=== PATIENT | female | born 1965 | race Caucasian/White ===

== ENCOUNTER 2022-06-28 09:30 | Inpatient (IN) ==
--- NOTE | 2022-06-28 09:51 | Emergency Department Note ---
Impression & Plan Overdose, Depression with suicidal ideation ED Provider Note NAME: CARLO GOLD AGE: 56 SEX: F : 1965 ARRIVES VIA: Walk-In INFORMANT: Patient, ED PROVIDER(S): Jose Carrera MD Chief Complaint: Overdose, outpatient referral HPI: Patient does present after disclosing an overdose that occurred on Sunday with one of her mental health providers. Patient states that she took approximately 2550 mg trazodone Sunday alcohol was involved and the patient took a small amount of 500 mg Tylenol. Patient believes that she only took a few Tylenol. Patient states that she vomited most of the day on Sunday but does feel improved. The patient did take the overdose with the intent to kill her self. Patient states that she did have a prior history of self-harm approximate 14 years prior. 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 The patient does occasionally use alcohol but denies any drugs or tobacco. Patient states that her sleep is not been restful and poor. The patient's appetite has been poor. Patient denies any HI or AVH. The patient recently had been switched up to where she had started taking Latuda about a week prior. Patient had presented for follow-up today and was referred here for further evaluation and treatment. Patient does feel safe at home. The patient has no access to guns or weapons per patient. ROS: See HPI for pertinent positives and negatives. A total of 10 systems were reviewed and otherwise negative. Past medical history: See below Surgical history: See below Social history: See below Physical Exam: GENERAL: NAD, wearing a mask, non-toxic. EYE EXAM: Normal conjunctiva. PERRL, no anisocoria and EOM's grossly intact w/o pain. NECK: Supple, no nuchal rigidity, no adenopathy, non-tender. No signs of meningismus. FROM of the neck with good chin to chest and neck extension. No stridor. LUNGS: Clear to auscultation. Normal chest wall mechanics. HEART: NSR, no MRG. ABDOMEN: Abdomen soft, non-tender, normo-active bowel sounds, no masses, no rebound or guarding. BACK: No CVA TTP. SKIN: No rashes and no bruising. UPPER EXTREMITIES: Upper extremities are grossly normal. LOWER EXTREMITIES: Grossly normal, no edema. NEURO EXAM: A&O x3, cranial nerves II-XII grossly intact, normal speech, moves all 4 extremities. Psych: Positive SI, depressed mood, negative HI or AVH. Differential diagnoses: Mood disorder, infection, hypoglycemia, electrolyte abnormalities, cardiac sources, intracerebral event, toxicologic, trauma, n eurologic, as well as other pathologies. Course: Patient was seen and evaluated the bedside. Full history physical exam was performed. EKG interpreted by me Normal sinus rhythm, to 64, normal intervals normal axis no ST elevations. No significant change for comparison EKG completed October 23, 2009 MDM: Patient was seen due to concern for mental wellness. The patient only took a small amount of Tylenol and the patient's trazodone would likely have metabolized by now as the half-life is 10 hours. Blood work is obtained. Patient was medically cleared seen and evaluated by psych major case detective and referrals were made. Patient was excepted to inpatient psych. 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 Beliefs That Will Affect Care: None Feels Safe at Home: Yes Assistive Devices: None Allergies Allergies Allergy/AdvReac Type Severity Reaction Status Date / Time cat dander Allergy Mild Watery Eye Verified 06/28/22 10:17 Home Meds Home Medications Medication Instructions Recorded Confirmed trazodone 50 mg tablet 50 mg PO HS ##0 05/10/10 06/28/22 bupropion HCl 150 mg tablet,12 hr 150 mg PO DAILY 06/28/22 06/28/22 sustained-release (Wellbutrin SR) cetirizine 10 mg capsule (All Day 10 mg PO DAILY 06/28/22 06/28/22 Allergy (cetirizine)) clonazepam 0.5 mg tablet (Klonopin) 0.5 mg PO BID PRN Anxiety 06/28/22 06/28/22 cyclobenzaprine 5 mg tablet 5 mg DAILY 06/28/22 06/28/22 ibuprofen 600 mg tablet (IBU) 600 mg PO BID 06/28/22 06/28/22 lurasidone 20 mg tablet (Latuda) 20 mg PO DAILY 06/28/22 06/28/22 pantoprazole 40 mg tablet,delayed 40 mg PO DAILY 06/28/22 06/28/22 release Results & Data (ED) Vital Signs Vital Signs - 24 hr 06/28/22 09:41 06/28/22 10:11 06/28/22 11:31 Temperature 37 C Temperature Source Oral Pulse Rate 86 Pulse Rate [Apical] 71 Pulse Rhythm [Apical] Regular Pulse Strength [Apical] Normal Respiratory Rate 18 16 16 Respiratory Effort / Characteristics Non-Labored Respiratory Depth Normal Respiratory Pattern Regular Blood Pressure 163/102 H Blood Pressure [Left Arm] 146/96 H Blood Pressure Mean 122 Blood Pressure Mean [Left Arm] 112 Blood Pressure Position [Left Arm] Sitting Pulse Oximetry 98 96 Oxygen Delivery Method Room Air Room Air Sepsis Recent Fever Within 48 Hours No Sepsis New/Unexplained Change in Mental Status No Sepsis Action Taken by Nursing No Action Required Home Medications Current Medication List: was personally reviewed by me Laboratory Data Attestation: I reviewed the patient's lab results. Result diagrams: 06/28/22 10:20 06/28/22 10:20 Lab Results 06/28/22 06/28/22 06/28/22 Range/Units 10:20 10:20 10:20 WBC 3.75 L (4.8-10.8) K/ul RBC 4.14 (3.93-5.22) M/uL Hgb 13.3 (12.0-16.0) g/dl Hct 39.8 (34.1-44.9) % MCV 96.1 (80.0-100.0) fL MCH 32.1 (25.0-34.0) pg MCHC 33.4 (32.0-36.0) g/dL RDW Std Deviation 43.5 (36.4-46.3) fL RDW Coeff of Kathrine 12.2 (11.5-14.5) % Plt Count 175 (130-400) K/uL MPV 10.8 (9.4-12.3) fL Immature Gran % (Auto) 0.3 % Neut % (Auto) 57.8 % Lymph % (Auto) 33.3 % [place] % (Auto) 5.9 % Eos % (Auto) 1.9 % Baso % (Auto) 0.8 % Neut # (Auto) 2.17 (1.4-6.5) K/uL Lymph # (Auto) 1.25 (1.2-3.4) K/uL [place] # (Auto) 0.22 L (0.24-0.82) K/uL Eos # (Auto) 0.07 (0-0.50) K/uL Baso # (Auto) 0.03 (0-0.2) K/uL Immature Gran # (Auto) 0.01 (0.00-0.02) K/uL Sodium 140 (136-145) mmol/L Potassium 3.9 (3.5-5.1) mmol/L Chloride 106 (98-107) mmol/L Carbon Dioxide 29 (21-32) mmol/L Anion Gap 5 (3-11) BUN 15 (6-23) mg/dl Creatinine 0.85 (0.6-1.2) mg/dl Est Cr Clr Drug Dosing 76.8 ml/min Est GFR ( Amer) 88.2 ml/min Est GFR (Non-Af Amer) 76.1 ml/min BUN/Creatinine Ratio 17.6 (10-20) Glucose 94 (70-99(Fasting)) mg/dl Calcium 9.1 (8.5-10.1) mg/dl Total Bilirubin 0.7 (0.2-1.0) mg/dl AST 17 (13-39) U/L ALT 15 (7-52) U/L Alkaline Phosphatase 34 (34-104) U/L Total Protein 6.5 (6.0-8.3) gm/dl Albumin 4.3 (3.4-5.0) gm/dl Globulin 2.2 L (2.5-4.0) gm/dl Albumin/Globulin Ratio 2.0 (0.9-2) TSH 1.693 (0.300-4.500) uIu/ml Salicylates (3.0-30) mg/dl Acetaminophen (10-30) ug/ml Ethyl Alcohol mg/dL (<10.0) mg/dl 06/28/22 06/28/22 Range/Units 10:20 10:20 WBC (4.8-10.8) K/ul RBC (3.93-5.22) M/uL Hgb (12.0-16.0) g/dl Hct (34.1-44.9) % MCV (80.0-100.0) fL MCH (25.0-34.0) pg MCHC (32.0-36.0) g/dL RDW Std Deviation (36.4-46.3) fL RDW Coeff of Kathrine (11.5-14.5) % Plt Count (130-400) K/uL MPV (9.4-12.3) fL Immature Gran % (Auto) % Neut % (Auto) % Lymph % (Auto) % [place] % (Auto) % Eos % (Auto) % Baso % (Auto) % Neut # (Auto) (1.4-6.5) K/uL Lymph # (Auto) (1.2-3.4) K/uL [place] # (Auto) (0.24-0.82) K/uL Eos # (Auto) (0-0.50) K/uL Baso # (Auto) (0-0.2) K/uL Immature Gran # (Auto) (0.00-0.02) K/uL Sodium (136-145) mmol/L Potassium (3.5-5.1) mmol/L Chloride (98-107) mmol/L Carbon Dioxide (21-32) mmol/L Anion Gap (3-11) BUN (6-23) mg/dl Creatinine (0.6-1.2) mg/dl Est Cr Clr Drug Dosing ml/min Est GFR ( Amer) ml/min Est GFR (Non-Af Amer) ml/min BUN/Creatinine Ratio (10-20) Glucose (70-99(Fasting)) mg/dl Calcium (8.5-10.1) mg/dl Total Bilirubin (0.2-1.0) mg/dl AST (13-39) U/L ALT (7-52) U/L Alkaline Phosphatase (34-104) U/L Total Protein (6.0-8.3) gm/dl Albumin (3.4-5.0) gm/dl Globulin (2.5-4.0) gm/dl Albumin/Globulin Ratio (0.9-2) TSH (0.300-4.500) uIu/ml Salicylates < 3.0 L (3.0-30) mg/dl Acetaminophen < 3 L (10-30) ug/ml Ethyl Alcohol mg/dL < 10.0 (<10.0) mg/dl Administered Medications Discontinued Medications Sumatriptan Succinate (Sumatriptan Succinate 25 Mg Tab) 25 mg PO ONE STA Stop: 06/28/22 14:40 Last Admin: 06/28/22 15:19 Dose: 25 mg Documented By: LEYDA Discharge Plan Visit Data Chief Complaint: Mental Health Evaluation Stated Complaint: MENTAL HEALTH EVALUATION ED Provider: Jose Carrera Discharge Problem: Overdose, Depression with suicidal ideation Patient Disposition: Admitted As Inpatient Discharge Instructions Interventions: ED Discharge Assessment Last Done: 06/28/22 13:47
[2022-06-28 10:16] LABS: Appearance Urine Clear (Clear); Bacteria Urine Automated Negative (Negative); Bilirubin Urine Negative (Negative); Blood Urine Negative (Negative); Color Urine Yellow; Epithelial Cell Urine Auto >30 /lpf (0-5); Glucose Urine UA Negative (Negative); Ketones Urine Negative (Negative); Leukocyte Esterase Urine 1+ (Negative); Nitrite Urine Negative (Negative); Protein Urine Negative (Negative); RBC Urine Automated 0-4 /hpf (0-4); Specific Gravity Urine 1.019 (1.000-1.030); Urobilinogen Urine Negative (Negative)
[2022-06-28 10:43] LABS: Basophils # (auto) 0.03 K/uL (0-0.2); Basophils % (auto) 0.8 %; Eosinophils # (auto) 0.07 K/uL (0-0.50); Eosinophils % (auto) 1.9 %; Hematocrit (blood only) 39.8 % (34.1-44.9); Hemoglobin 13.3 g/dl (12.0-16.0); Immature Granulocytes # (auto) 0.01 K/uL (0.00-0.02); Immature Granulocytes % (auto) 0.3 %; Lymphocytes # (auto) 1.25 K/uL (1.2-3.4); Lymphocytes % (auto) 33.3 %; Mean Corpuscular Hemoglobin 32.1 pg (25.0-34.0); Mean Corpuscular Hgb Conc 33.4 g/dL (32.0-36.0); Mean Corpuscular Volume 96.1 fL (80.0-100.0); Mean Platelet Volume 10.8 fL (9.4-12.3); Monocytes # (auto) 0.22 K/uL (0.24-0.82); Monocytes % (auto) 5.9 %; Neutrophils # (auto) 2.17 K/uL (1.4-6.5); Neutrophils % (auto) 57.8 %; Platelet Count 175 K/uL (130-400); RDW Coefficient of Variation 12.2 % (11.5-14.5); RDW Standard Deviation 43.5 fL (36.4-46.3); Red Blood Count 4.14 M/uL (3.93-5.22); White Blood Count 3.75 K/ul (4.8-10.8)
[2022-06-28 10:58] LABS: Amphetamines+Metham, Urine Neg (Neg); Barbiturates, Urine Neg (Neg); Benzodiazepine, Urine Neg (Neg); Cocaine, Urine Neg (Neg); MDMA (Ecstacy), Urine Pos (Neg); Methadone, Urine Neg (Neg); Opiate, Urine Neg (Neg); Phencyclidine, Urine Neg (Neg)
[2022-06-28 11:03] LABS: Albumin Level 4.3 gm/dl (3.4-5.0); BUN Creatinine Ratio 17.6 (10-20); Bilirubin,Total 0.7 mg/dl (0.2-1.0); Calcium 9.1 mg/dl (8.5-10.1); Creatinine Clr Calc Pharmacy 76.8 ml/min; Est GFR (African American) 88.2 ml/min; Est GFR (Non-African American) 76.1 ml/min; Globulin 2.2 gm/dl (2.5-4.0); Potassium 3.9 mmol/L (3.5-5.1); Total Protein 6.5 gm/dl (6.0-8.3)
[2022-06-28 11:04] LABS: Acetaminophen < 3 ug/ml (10-30); Salicylate < 3.0 mg/dl (3.0-30)
[2022-06-28] MEDS ORDERED: BISMUTH SUBSALICYLATE LIQD 236 ML PO PRN (13:05)
[2022-06-28] MEDS ORDERED: SODIUM CHLORIDE 0.65% NA SOLN 45 ML (OCEAN) PRN (13:05)
[2022-06-28] MEDS ORDERED: hydrOXYzine HCl 25 MG TAB PO PRN (13:05)
[2022-06-28] MEDS ORDERED: ALUMINUM/MAGNESIUM SUSP 30 ML UDC PO PRN (13:05)
[2022-06-28] MEDS ORDERED: ACETAMINOPHEN 325 MG TAB PO PRN (13:05)
[2022-06-28] MEDS ORDERED: MAGNESIUM HYDROXIDE SUSP 30 ML UDC PO PRN (13:05)
[2022-06-28] MEDS ORDERED: clonazePAM 0.5 MG TAB PO PRN (13:06)
[2022-06-28] MEDS ORDERED: SUMAtriptan succinate 25 MG TAB PO PRN (14:37)
[2022-06-28] MEDS ORDERED: SUMAtriptan succinate 25 MG TAB PO STA (14:39)
--- NOTE | 2022-06-28 14:45 | History & Physical ---
Date of Service June 28, 2022 Impression / Recommendations Impression 56 yo female with a previous suicidal gesture >10 years ago (3 prior inpatient mental health stays for depression around her divorce) presents following undisclosed trazodone OD within the past week in the context of argument with mickey. (1) Depression with suicidal ideation: (2) Overdose: Plan The patient was admitted to the [facility]) on q15 min checks (behavioral with suicide precautions) for safety. The patient will participate in group, recreational, and milieu therapies and will be offered additional individual and family sessions as clinically appropriate. Risks/benefits/alternatives reviewed re: continuing current medications save trazodone (given OD). Will provide Imitrex prn as she is likely between doses of her monthly injectable preventative. Inventory Assets Strengths: has been connected with community care, did reveal attempt Needs: improve coping skills, doesn't currently have outpatient therapist. 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 Chief Complaint "I have a migraine, I really can't do much of this right now." History of Present Illness Patient is in a dark room, states at home she occasionally uses an injection or Imitrex for her migraine [place]. Currently stressed after time in ED and having related her attempt to outpatient provider at [facility] and then seeking medical attention. She has indicated that she is upset the attempt didn't work and her provider initiated a petitioning statement had she been unwilling to sign in for treatment, particularly given past attempt. She confirmed her recent history as outlined in ED CM note and clarified that she does take Latuda only for the past few days and with her evening meal. She has not taken it yet today and had she been able to complete her appointment the plan was to increase the dose to 40 mg to target her depression. As per ED CM: Pt reports that last Sunday night, following a fight with her fisantos, she took a bunch of pills in an attempt to end her life. She reports that it was impulsive and denies planning the event prior to taking the pills. She admits to severe depression/anxiety. She states that the fight with her fisantos was about her depression and his difficulty understanding it. She reports that she vomited most of the day Sat but did not seek treatment. Today she went to see her psychiatric provider, Tori Asencio. Pt denied current SI with plan and intent but stated that she wished she would have Sunday when she took the overdose. Tori recommended that she come to the ED. Tori did complete a 302 petition. Pt has no therapist. She lives with her fisantos. 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 She states that they are the only reason she is alive. Pt is very tearful. She denies drug use and reports drinking alcohol on Sunday nights when she and her fianc go out. She does not smoke cigarettes. She has a hx of one SA 14 years ago by overdose. She was a pt at [facility]/ Unit. She states that she was going through an ugly divorce and that is when her depression started. She reports that she lost 50 lbs during Covid and has gained all of that weight back, which she is very unhappy about. She states that she binge eats and then feels terrible about herself. She denies purging. Her sleep is not good, she reports 3-4 hours of interrupted sleep. She reports extreme anxiety. She does not like to leave her house and has difficulty being around people. She denies hallucinations, delusions and paranoia. Pt is willing for inpatient treatment. Past Psychiatric History Previous Psych History: diagnoses of MDD, possibly personality disorder, remote ETOH abuse Current Psychiatric Diagnosis: depression/anxiety Outpatient Services: [facility] Previous Psych Admissions: October 2009--OD of Klonopin and Ambien with Vodka; also 2008 and 2007. Past Medication Trials: Wellbutrin, Ritalin Additional Notes: has been receiving services in community for decades, initially with some [facility] then Dr. Estrada [facility] Allergies Allergy/AdvReac Type Severity Reaction Status Date / Time cat dander Allergy Mild Watery Eye Verified 06/28/22 10:17 Home Medications Medication Instructions Recorded Confirmed Type trazodone 50 mg tablet 50 mg PO HS ##0 05/10/10 06/28/22 History bupropion HCl 150 mg tablet,12 hr 150 mg PO DAILY 06/28/22 06/28/22 History sustained-release (Wellbutrin SR) cetirizine 10 mg capsule (All Day 10 mg PO DAILY 06/28/22 06/28/22 History Allergy (cetirizine)) clonazepam 0.5 mg tablet (Klonopin) 0.5 mg PO BID PRN Anxiety 06/28/22 06/28/22 History cyclobenzaprine 5 mg tablet 5 mg DAILY 06/28/22 06/28/22 History ibuprofen 600 mg tablet (IBU) 600 mg PO BID 06/28/22 06/28/22 History lurasidone 20 mg tablet (Latuda) 20 mg PO DAILY 06/28/22 06/28/22 History pantoprazole 40 mg tablet,delayed 40 mg PO DAILY 06/28/22 06/28/22 History release Family History Family History of: None Alcohol History Hx of Alcohol Use Over the Past 12 Months: Yes (A few drinks on Sunday nights) AUDIT Total Score: 4 Smoking Use Have You Smoked or Used Tobacco Products in the Last 30 Days: No Smoking Status: Never smoker Substance History Hx of Prescription Med Misuse Over the Past 12 Months: No Hx of Over the Counter Med Misuse Over the Past 12 Months: No Hx of Inhalent Misuse Over the Past 12 Months: No Hx of Organic Substance Use Over the Past 12 Months: No Hx of Illegal Substances/Street Drug Use Over Past 12 Months: No Problems as a Result of Past Substance Use: None Identified Personal History Living Arrangements: Home Childhood: [place], 2 sibs Marital Status: Living w/ Signif. 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 Required: No Beliefs That Will Affect Care: None Feels Safe at Home: Yes Assistive Devices: None Review of Systems Review of Systems: All systems reviewed & are unremarkable except as noted in HPI & below Physical Exam Psychiatric: Orientation: alert Apperance: + disheveled Eye Contact: + poor eye contact Motor Behavior: no abnormal motor movements Speech: normal rate/rhythm/volume of speech Affect: + depressed affect Mood: + depressed mood Thought Process: goal directed thought process Thought Content: reality based without delusions Suicidal Thoughts: denies suicidal intent (on unit); + reports suicidal thoughts and + reports suicidal plan (OD again, can't on unit) Homicidal Thoughts: denies homicidal thoughts Hallucinations: no auditory hallucinations and no visual hallucinations Cognition: language grossly intact; + attention not intact Estimated Intelligence: consistent with education level Insight: + limited insight Judgement: + limited judgement Vital Signs (Past 24 Hours): Last Vital Signs Temp 37.3 C 06/28/22 14:14 Pulse 69 06/28/22 14:14 Resp 16 06/28/22 14:14 BP 156/98 H 06/28/22 14:14 Pulse Ox 100 06/28/22 14:14 O2 Del Method 06/28/22 14:14 Exam Statement: A physical exam was performed in the ED by Dr. Carrera for the purposes of medical clearance. I accept that physical as correct and adequate for the purposes of the inpatient physical exam. Results & Data ([facility]) Laboratory Results Laboratory Results - last 24 hr 06/28/22 06/28/22 06/28/22 10:20 10:20 10:20 WBC 3.75 L RBC 4.14 Hgb 13.3 Hct 39.8 MCV 96.1 MCH 32.1 MCHC 33.4 RDW Std Deviation 43.5 RDW Coeff of Kathrine 12.2 Plt Count 175 MPV 10.8 Immature Gran % (Auto) 0.3 Neut % (Auto) 57.8 Lymph % (Auto) 33.3 [place] % (Auto) 5.9 Eos % (Auto) 1.9 Baso % (Auto) 0.8 Neut # (Auto) 2.17 Lymph # (Auto) 1.25 [place] # (Auto) 0.22 L Eos # (Auto) 0.07 Baso # (Auto) 0.03 Immature Gran # (Auto) 0.01 Sodium 140 Potassium 3.9 Chloride 106 Carbon Dioxide 29 Anion Gap 5 BUN 15 Creatinine 0.85 Est Cr Clr Drug Dosing 76.8 Est GFR ( Amer) 88.2 Est GFR (Non-Af Amer) 76.1 BUN/Creatinine Ratio 17.6 Glucose 94 Calcium 9.1 Total Bilirubin 0.7 AST 17 ALT 15 Alkaline Phosphatase 34 Total Protein 6.5 Albumin 4.3 Globulin 2.2 L Albumin/Globulin Ratio 2.0 TSH 1.693 Urine Color Urine Appearance Urine pH Ur Specific [place] Urine Protein Urine Glucose (UA) Urine Ketones Urine Blood Urine Nitrite Urine Bilirubin Urine Urobilinogen Ur Leukocyte Esterase Urine WBC (Auto) Urine RBC (Auto) U Hyaline Cast (Auto) U Epithel Cells (Auto) Urine Bacteria (Auto) Salicylates Urine Opiates Screen Ur Methadone, Qual Acetaminophen Urine Barbiturates Ur Phencyclidine (PCP) U Amphetamin/Meth Scrn Urine MDEA MDMA (Ecstasy) Screen MDMA Urine MDMA U Benzodiazepines Scrn Ur Cocaine Metabolite U Marijuana (THC) Screen Ethyl Alcohol mg/dL SARS-CoV-2, RNA, NAAT 06/28/22 06/28/22 06/28/22 10:20 10:20 Unknown WBC RBC Hgb Hct MCV MCH MCHC RDW Std Deviation RDW Coeff of Kathrine Plt Count MPV Immature Gran % (Auto) Neut % (Auto) Lymph % (Auto) [place] % (Auto) Eos % (Auto) Baso % (Auto) Neut # (Auto) Lymph # (Auto) [place] # (Auto) Eos # (Auto) Baso # (Auto) Immature Gran # (Auto) Sodium Potassium Chloride Carbon Dioxide Anion Gap BUN Creatinine Est Cr Clr Drug Dosing Est GFR ( Amer) Est GFR (Non-Af Amer) BUN/Creatinine Ratio Glucose Calcium Total Bilirubin AST ALT Alkaline Phosphatase Total Protein Albumin Globulin Albumin/Globulin Ratio TSH Urine Color Yellow Urine Appearance Clear Urine pH 5.0 Ur Specific [place] 1.019 Urine Protein Negative Urine Glucose (UA) Negative Urine Ketones Negative Urine Blood Negative Urine Nitrite Negative Urine Bilirubin Negative Urine Urobilinogen Negative Ur Leukocyte Esterase 1+ H Urine WBC (Auto) 1-5 Urine RBC (Auto) 0-4 U Hyaline Cast (Auto) 1-5 U Epithel Cells (Auto) >30 H Urine Bacteria (Auto) Negative Salicylates < 3.0 L Urine Opiates Screen Ur Methadone, Qual Acetaminophen < 3 L Urine Barbiturates Ur Phencyclidine (PCP) U Amphetamin/Meth Scrn Urine MDEA MDMA (Ecstasy) Screen MDMA Urine MDMA U Benzodiazepines Scrn Ur Cocaine Metabolite U Marijuana (THC) Screen Ethyl Alcohol mg/dL < 10.0 SARS-CoV-2, RNA, NAAT 06/28/22 06/28/22 06/28/22 Unknown Unknown Unknown WBC RBC Hgb Hct MCV MCH MCHC RDW Std Deviation RDW Coeff of Kathrine Plt Count MPV Immature Gran % (Auto) Neut % (Auto) Lymph % (Auto) [place] % (Auto) Eos % (Auto) Baso % (Auto) Neut # (Auto) Lymph # (Auto) [place] # (Auto) Eos # (Auto) Baso # (Auto) Immature Gran # (Auto) Sodium Potassium Chloride Carbon Dioxide Anion Gap BUN Creatinine Est Cr Clr Drug Dosing Est GFR ( Amer) Est GFR (Non-Af Amer) BUN/Creatinine Ratio Glucose Calcium Total Bilirubin AST ALT Alkaline Phosphatase Total Protein Albumin Globulin Albumin/Globulin Ratio TSH Urine Color Urine Appearance Urine pH Ur Specific [place] Urine Protein Urine Glucose (UA) Urine Ketones Urine Blood Urine Nitrite Urine Bilirubin Urine Urobilinogen Ur Leukocyte Esterase Urine WBC (Auto) Urine RBC (Auto) U Hyaline Cast (Auto) U Epithel Cells (Auto) Urine Bacteria (Auto) Salicylates Urine Opiates Screen Neg Ur Methadone, Qual Neg Acetaminophen Urine Barbiturates Neg Ur Phencyclidine (PCP) Neg U Amphetamin/Meth Scrn Neg Urine MDEA Pending MDMA (Ecstasy) Screen Pos H MDMA Pending Urine MDMA Pending U Benzodiazepines Scrn Neg Ur Cocaine Metabolite Neg U Marijuana (THC) Screen Neg Ethyl Alcohol mg/dL SARS-CoV-2, RNA, NAAT NEGATIVE Diagnostic Findings nl QTc on EKG, EKG reviewed by ED attending as part of medical clearance. Current Inpatient Medications Current Inpatient Medications: Current Inpatient Medications Acetaminophen (Acetaminophen 325 Mg Tab) 650 mg PO Q4H PRN PRN Reason: Headache or Minor Fever Stop: 07/28/22 13:04 Al Hydrox/Mg Hydrox/Simethicone (Aluminum/Magnesium Susp 30 Ml Udc) 30 ml PO Q4H PRN PRN Reason: GI Upset Stop: 07/28/22 13:04 Bismuth Subsalicylate (Bismuth Subsalicylate Liqd 236 Ml) 15 ml PO PRN PRN PRN Reason: Loose Stool Stop: 07/28/22 13:04 Bupropion HCl (Bupropion Sr 150 Mg Tabcr) 150 mg PO DAILY DAYANNA Stop: 07/29/22 08:59 Cetirizine HCl (Cetirizine Hcl 10 Mg Tablet) 10 mg PO DAILY DAYANNA Stop: 07/29/22 08:59 Clonazepam (Clonazepam 0.5 Mg Tab) 0.5 mg PO BID PRN PRN Reason: Anxiety Stop: 07/28/22 13:05 Cyclobenzaprine HCl (Cyclobenzaprine Hcl 5 Mg Tab) 5 mg PO DAILY DAYANNA Stop: 07/29/22 08:59 Hydroxyzine HCl (Hydroxyzine Hcl 25 Mg Tab) 50 mg PO HSZ PRN PRN Reason: Insomnia Stop: 07/28/22 13:04 Hydroxyzine HCl (Hydroxyzine Hcl 25 Mg Tab) 25 mg PO Q4H PRN PRN Reason: Anxiety Stop: 07/28/22 13:04 Ibuprofen (Ibuprofen 600 Mg Tab) 600 mg PO BID DAYANNA Stop: 07/28/22 20:59 Lurasidone HCl (Lurasidone Hcl 40 Mg Tab) 40 mg PO DAILYBD DAYANNA Stop: 07/28/22 17:14 Magnesium Hydroxide (Magnesium Hydroxide Susp 30 Ml Udc) 30 ml PO DAILY PRN PRN Reason: Constipation Stop: 07/28/22 13:04 Pantoprazole Sodium (Pantoprazole 40 Mg Tab) 40 mg PO DAILY DAYANNA Stop: 07/29/22 08:59 Sodium Chloride (Sodium Chloride 0.65% Na Soln 45 Ml ([place])) 1 - 2 sprays NA PRN PRN PRN Reason: Nasal Dryness/Congestion Stop: 07/28/22 13:04 Sumatriptan Succinate (Sumatriptan Succinate 25 Mg Tab) 25 mg PO DAILY PRN PRN Reason: Migraine Headache Stop: 07/28/22 14:36 Sumatriptan Succinate (Sumatriptan Succinate 25 Mg Tab) 25 mg PO ONE STA Stop: 06/28/22 14:40
--- NOTE | 2022-06-28 16:57 | Electrocardiogram Report ---
Test Reason : Blood Pressure : / mmHG Vent. Rate : 064 BPM Atrial Rate : 064 BPM P-R Int : 140 ms QRS Dur : 088 ms QT Int : 412 ms P-R-T Axes : 039 019 042 degrees QTc Int : 425 ms Normal sinus rhythm Nonspecific ST abnormality Abnormal ECG When compared with ECG of 23-OCT-2009 21:52, No significant change was found Confirmed by Manfred Hwang ([id number]) on 06/28/2022 4:57:27 PM Referred By: REFERRED SELF Confirmed By:Manfred Hwang
[2022-06-28] MEDS: LURASIDONE HCL 40 MG TAB PO SCH (17:49)
[2022-06-28] MEDS ORDERED: IBUPROFEN 600 MG TAB PO SCH (21:00)
[2022-06-28] MEDS: DICLOFENAC SODIUM 75 MG TABCR PO SCH (21:16)
[2022-06-29] MEDS: PANTOprazole 40 MG TAB PO SCH (08:45)
[2022-06-29] MEDS: buPROPion SR 150 MG TABCR PO SCH (08:45)
[2022-06-29] MEDS: CETIRIZINE HCL 10 MG TABLET PO SCH (08:45)
[2022-06-29] MEDS: DICLOFENAC SODIUM 75 MG TABCR PO SCH ×2 (08:48→20:45)
[2022-06-29] MEDS ORDERED: CYCLOBENZAPRINE HCL 5 MG TAB PO SCH (09:00)
[2022-06-29] MEDS ORDERED: FREMANEZUMAB VFRM 225 MG/1.5 ML SQ SCH (10:00)
--- NOTE | 2022-06-29 10:04 | Psychiatric Progress Note ---
Date of Service June 29, 2022 Impression / Recommendations Impression 56 yo female with a previous suicidal gesture >10 years ago (3 prior inpatient mental health stays for depression around her divorce) presents following undisclosed trazodone OD within the past week in the context of argument with fiance. Remains ambivalent re: involvement of children/extended family in her care (some are employees). Records reviewed as being seen for some time at [place] for dx of unspecified mood disorder and TRENA. 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 Past med trials listed as Prozac, Rexulti (side effects), Wellbutrin, Lamictal (never past 50 mg), Ziprasidone, Trintellix, Topamax. 06/29/22: physically feeling improved, remains depressed/overwhelmed. (1) Depression with suicidal ideation: (2) Overdose: Plan 06/29/22: Risks/benefits/alternatives were re-reviewed re: antipsychotics for mood and/or psychosis. Discussion included but was not limited to metabolic and longer term TD. There were no abnormal motor movements at baseline. Fasting glucose and lipid panel ordered for baseline monitoring. Continue higher dose of Latuda 40 mg daily. 06/28/22: The patient was [facility] ([facility] mental health unit) on q15 min checks (behavioral with suicide precautions) for safety. The patient will participate in group, recreational, and milieu therapies and will be offered additional individual and family sessions as clinically appropriate. Risks/benefits/alternatives reviewed re: continuing current medications save trazodone (given OD). Will provide Imitrex prn as she is likely between doses of her monthly injectable preventative. Inventory Assets Strengths: has been connected with community care, did reveal attempt Needs: improve coping skills, doesn't currently have outpatient therapist. 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 Chief Complaint "It's all me when in comes to this disagreement, we don't argue, I was irritable or reactive." Review of Systems Sleep Information Total Hours of Sleep: 6 Sleep Comments: Awoke early with a migraine - given Imitrex and returned to sleep Meal Information Percent Meal Consumed - Breakfast: 100 Percent Meal Consumed - Dinner: 100 Subjective Subjective Patient was seen & assessed and interval progress reviewed with nursing and social work. States that she feels that she slept OK but did require a second dose of imitrex for her migraine and has some residual [place] but no photophobia or N. Ate breakfast and tolerating increase in Latuda. She repeatedly made negative statements about her appearance and this leads to avoidance of people as lost 50 lbs on Nurtisystem during pandemic and has since regained/clothes don't fit. Physical Exam Psychiatric Orientation: alert Apperance: appropriately groomed Eye Contact: + fair eye contact Motor Behavior: no abnormal motor movements Speech: normal rate/rhythm/volume of speech Affect: + depressed affect Mood: + depressed mood Thought Process: goal directed thought process Thought Content: reality based without delusions Suicidal Thoughts: denies suicidal intent (on unit); + reports suicidal thoughts and + reports suicidal plan (OD again, can't on unit) Homicidal Thoughts: denies homicidal thoughts Hallucinations: no auditory hallucinations and no visual hallucinations Cognition: language grossly intact; + attention not intact Estimated Intelligence: consistent with education level Insight: + limited insight Judgement: + limited judgement Vital Signs (Past 24 Hours) Last Vital Signs Temp 36.3 C L 06/29/22 06:00 Pulse 76 06/29/22 07:09 Resp 16 06/29/22 06:00 BP 138/87 06/29/22 07:09 Pulse Ox 97 06/29/22 06:00 O2 Del Method 06/29/22 06:00 Results & Data ([facility]) Laboratory Results Laboratory Results - last 24 hr 06/28/22 06/28/22 06/28/22 10:20 10:20 10:20 WBC 3.75 L RBC 4.14 Hgb 13.3 Hct 39.8 MCV 96.1 MCH 32.1 MCHC 33.4 RDW Std Deviation 43.5 RDW Coeff of Kathrine 12.2 Plt Count 175 MPV 10.8 Immature Gran % (Auto) 0.3 Neut % (Auto) 57.8 Lymph % (Auto) 33.3 [place] % (Auto) 5.9 Eos % (Auto) 1.9 Baso % (Auto) 0.8 Neut # (Auto) 2.17 Lymph # (Auto) 1.25 [place] # (Auto) 0.22 L Eos # (Auto) 0.07 Baso # (Auto) 0.03 Immature Gran # (Auto) 0.01 Sodium 140 Potassium 3.9 Chloride 106 Carbon Dioxide 29 Anion Gap 5 BUN 15 Creatinine 0.85 Est Cr Clr Drug Dosing 76.8 Est GFR ( Amer) 88.2 Est GFR (Non-Af Amer) 76.1 BUN/Creatinine Ratio 17.6 Glucose 94 Calcium 9.1 Total Bilirubin 0.7 AST 17 ALT 15 Alkaline Phosphatase 34 Total Protein 6.5 Albumin 4.3 Globulin 2.2 L Albumin/Globulin Ratio 2.0 TSH 1.693 Urine Color Urine Appearance Urine pH Ur Specific [place] Urine Protein Urine Glucose (UA) Urine Ketones Urine Blood Urine Nitrite Urine Bilirubin Urine Urobilinogen Ur Leukocyte Esterase Urine WBC (Auto) Urine RBC (Auto) U Hyaline Cast (Auto) U Epithel Cells (Auto) Urine Bacteria (Auto) Salicylates Urine Opiates Screen Ur Methadone, Qual Acetaminophen Urine Barbiturates Ur Phencyclidine (PCP) U Amphetamin/Meth Scrn Urine MDEA MDMA (Ecstasy) Screen MDMA Urine MDMA U Benzodiazepines Scrn Ur Cocaine Metabolite U Marijuana (THC) Screen Ethyl Alcohol mg/dL SARS-CoV-2, RNA, NAAT 06/28/22 06/28/22 06/28/22 10:20 10:20 Unknown WBC RBC Hgb Hct MCV MCH MCHC RDW Std Deviation RDW Coeff of Kathrine Plt Count MPV Immature Gran % (Auto) Neut % (Auto) Lymph % (Auto) [place] % (Auto) Eos % (Auto) Baso % (Auto) Neut # (Auto) Lymph # (Auto) [place] # (Auto) Eos # (Auto) Baso # (Auto) Immature Gran # (Auto) Sodium Potassium Chloride Carbon Dioxide Anion Gap BUN Creatinine Est Cr Clr Drug Dosing Est GFR ( Amer) Est GFR (Non-Af Amer) BUN/Creatinine Ratio Glucose Calcium Total Bilirubin AST ALT Alkaline Phosphatase Total Protein Albumin Globulin Albumin/Globulin Ratio TSH Urine Color Yellow Urine Appearance Clear Urine pH 5.0 Ur Specific [place] 1.019 Urine Protein Negative Urine Glucose (UA) Negative Urine Ketones Negative Urine Blood Negative Urine Nitrite Negative Urine Bilirubin Negative Urine Urobilinogen Negative Ur Leukocyte Esterase 1+ H Urine WBC (Auto) 1-5 Urine RBC (Auto) 0-4 U Hyaline Cast (Auto) 1-5 U Epithel Cells (Auto) >30 H Urine Bacteria (Auto) Negative Salicylates < 3.0 L Urine Opiates Screen Ur Methadone, Qual Acetaminophen < 3 L Urine Barbiturates Ur Phencyclidine (PCP) U Amphetamin/Meth Scrn Urine MDEA MDMA (Ecstasy) Screen MDMA Urine MDMA U Benzodiazepines Scrn Ur Cocaine Metabolite U Marijuana (THC) Screen Ethyl Alcohol mg/dL < 10.0 SARS-CoV-2, RNA, NAAT 06/28/22 06/28/22 06/28/22 Unknown Unknown Unknown WBC RBC Hgb Hct MCV MCH MCHC RDW Std Deviation RDW Coeff of Kathrine Plt Count MPV Immature Gran % (Auto) Neut % (Auto) Lymph % (Auto) [place] % (Auto) Eos % (Auto) Baso % (Auto) Neut # (Auto) Lymph # (Auto) [place] # (Auto) Eos # (Auto) Baso # (Auto) Immature Gran # (Auto) Sodium Potassium Chloride Carbon Dioxide Anion Gap BUN Creatinine Est Cr Clr Drug Dosing Est GFR ( Amer) Est GFR (Non-Af Amer) BUN/Creatinine Ratio Glucose Calcium Total Bilirubin AST ALT Alkaline Phosphatase Total Protein Albumin Globulin Albumin/Globulin Ratio TSH Urine Color Urine Appearance Urine pH Ur Specific [place] Urine Protein Urine Glucose (UA) Urine Ketones Urine Blood Urine Nitrite Urine Bilirubin Urine Urobilinogen Ur Leukocyte Esterase Urine WBC (Auto) Urine RBC (Auto) U Hyaline Cast (Auto) U Epithel Cells (Auto) Urine Bacteria (Auto) Salicylates Urine Opiates Screen Neg Ur Methadone, Qual Neg Acetaminophen Urine Barbiturates Neg Ur Phencyclidine (PCP) Neg U Amphetamin/Meth Scrn Neg Urine MDEA Pending MDMA (Ecstasy) Screen Pos H MDMA Pending Urine MDMA Pending U Benzodiazepines Scrn Neg Ur Cocaine Metabolite Neg U Marijuana (THC) Screen Neg Ethyl Alcohol mg/dL SARS-CoV-2, RNA, NAAT NEGATIVE Current Inpatient Medications Current Inpatient Medications: Current Inpatient Medications Acetaminophen (Acetaminophen 325 Mg Tab) 650 mg PO Q4H PRN PRN Reason: Headache or Minor Fever Stop: 07/28/22 13:04 Al Hydrox/Mg Hydrox/Simethicone (Aluminum/Magnesium Susp 30 Ml Udc) 30 ml PO Q4H PRN PRN Reason: GI Upset Stop: 07/28/22 13:04 Bismuth Subsalicylate (Bismuth Subsalicylate Liqd 236 Ml) 15 ml PO PRN PRN PRN Reason: Loose Stool Stop: 07/28/22 13:04 Bupropion HCl (Bupropion Sr 150 Mg Tabcr) 150 mg PO DAILY DAYANNA Stop: 07/29/22 08:59 Last Admin: 06/29/22 08:45 Dose: 150 mg Cetirizine HCl (Cetirizine Hcl 10 Mg Tablet) 10 mg PO DAILY DAYANNA Stop: 07/29/22 08:59 Last Admin: 06/29/22 08:45 Dose: 10 mg Clonazepam (Clonazepam 0.5 Mg Tab) 0.5 mg PO BID PRN PRN Reason: Anxiety Stop: 07/28/22 13:05 Cyclobenzaprine HCl (Cyclobenzaprine Hcl 5 Mg Tab) 5 mg PO HS DAYANNA Stop: 07/29/22 21:59 Diclofenac Sodium (Diclofenac Sodium 75 Mg Tabcr) 75 mg PO BID DAYANNA Stop: 07/28/22 20:59 Last Admin: 06/29/22 08:48 Dose: 75 mg Hydroxyzine HCl (Hydroxyzine Hcl 25 Mg Tab) 50 mg PO HSZ PRN PRN Reason: Insomnia Stop: 07/28/22 13:04 Hydroxyzine HCl (Hydroxyzine Hcl 25 Mg Tab) 25 mg PO Q4H PRN PRN Reason: Anxiety Stop: 07/28/22 13:04 Lurasidone HCl (Lurasidone Hcl 40 Mg Tab) 40 mg PO DAILYBD DAYANNA Stop: 07/28/22 17:14 Last Admin: 06/28/22 17:49 Dose: 40 mg Magnesium Hydroxide (Magnesium Hydroxide Susp 30 Ml Udc) 30 ml PO DAILY PRN PRN Reason: Constipation Stop: 07/28/22 13:04 Non-Formulary Medication (Fremanezumab-Vfrm [Ajovy Syringe]) 225 mg SQ MONTHLY DAYANNA Stop: 07/29/22 09:59 Pantoprazole Sodium (Pantoprazole 40 Mg Tab) 40 mg PO DAILY DAYANNA Stop: 07/29/22 08:59 Last Admin: 06/29/22 08:45 Dose: 40 mg Sodium Chloride (Sodium Chloride 0.65% Na Soln 45 Ml ([place])) 1 - 2 sprays NA PRN PRN PRN Reason: Nasal Dryness/Congestion Stop: 07/28/22 13:04 Sumatriptan Succinate (Sumatriptan Succinate 25 Mg Tab) 25 mg PO DAILY PRN PRN Reason: Migraine Headache Stop: 07/28/22 14:36 Last Admin: 06/29/22 04:23 Dose: 25 mg Mental Health & Subst Abuse Tx Therapist Name of Therapist: None Inbound Sales Advisor Name of Inbound Sales Advisor: None Post Discharge Appointments Primary Care Physician Name Of Family Doctor: Rodney Pires
[2022-06-29] MEDS: LURASIDONE HCL 40 MG TAB PO SCH (17:31)
[2022-06-29] MEDS: CYCLOBENZAPRINE HCL 5 MG TAB PO SCH (20:45)
[2022-06-29] MEDS: hydrOXYzine HCl 25 MG TAB PO PRN (20:45)
[2022-06-30] MEDS ORDERED: FREMANEZUMAB SC SCH (09:00)
[2022-06-30] MEDS: DICLOFENAC SODIUM 75 MG TABCR PO SCH ×2 (09:31→20:35)
[2022-06-30] MEDS: CETIRIZINE HCL 10 MG TABLET PO SCH (09:31)
[2022-06-30] MEDS: buPROPion SR 150 MG TABCR PO SCH (09:31)
[2022-06-30] MEDS: PANTOprazole 40 MG TAB PO SCH (09:32)
[2022-06-30 09:52] LABS: Chol HDL Ratio 3.8 (0-5)
[2022-06-30] MEDS: metroNIDAZOLE 0.75% TOPICAL GEL 45 GM TUBE TOP SCH (10:47)
[2022-06-30] MEDS ORDERED: clonazePAM 0.5 MG TAB PO PRN (13:41)
[2022-06-30] MEDS ORDERED: busPIRone 5 MG TAB PO PRN (13:41)
--- NOTE | 2022-06-30 13:49 | Psychiatric Progress Note ---
Date of Service June 30, 2022 Impression / Recommendations Impression 56 yo female with a previous suicidal gesture >10 years ago (3 prior inpatient mental health stays for depression around her divorce) presents following undisclosed trazodone OD within the past week in the context of argument with fiance. Remains ambivalent re: involvement of children/extended family in her care (some are employees). Records reviewed as being seen for some time at [place] for dx of unspecified mood disorder and TRENA. 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 Past med trials listed as Prozac, Rexulti (side effects), Wellbutrin, Lamictal (never past 50 mg), Ziprasidone, Trintellix, Topamax. 06/30/22: ongoing anxiety, negative self-image (1) Depression with suicidal ideation: (2) Overdose: Plan 06/29/22: as main concerns are anxiety and low motivation with depression discussed trial of a higher dose of Wellbutrin (particularly given am vs. pm fluctuations in mood), and addition of standing Buspar. Likely switch to XL formulation of Wellbutrin soon though if evidence of jitteriness, patient has not exhausted SSRI trials. 06/29/22: Risks/benefits/alternatives were re-reviewed re: antipsychotics for mood and/or psychosis. Discussion included but was not limited to metabolic and longer term TD. There were no abnormal motor movements at baseline. Fasting glucose and lipid panel ordered for baseline monitoring. Continue higher dose of Latuda 40 mg daily. 06/28/22: The patient was admitted to the [facility] ([facility] mental health unit) on q15 min checks (behavioral with suicide precautions) for safety. The patient will participate in group, recreational, and milieu therapies and will be offered additional individual and family sessions as clinically appropriate. Risks/benefits/alternatives reviewed re: continuing current medications save trazodone (given OD). Will provide Imitrex prn as she is likely between doses of her monthly injectable preventative. Inventory Assets Strengths: has been connected with community care, did reveal attempt Needs: improve coping skills, doesn't currently have outpatient therapist. 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 Chief Complaint "i was ok this am and now I feel like I'm an anxious mess". Review of Systems Sleep Information Total Hours of Sleep: 8 Meal Information Percent Meal Consumed - Breakfast: 5 Percent Meal Consumed - Dinner: 100 Subjective Subjective Patient was seen & assessed and interval progress reviewed with treatment team. Patient makes a ton of negative self statements, often about her appearance, crying now that she is ugly. feels evaluated. Feels she can't process information at rate needed for groups. Physical Exam Psychiatric Orientation: alert Apperance: appropriately groomed Eye Contact: + fair eye contact Motor Behavior: no abnormal motor movements Speech: normal rate/rhythm/volume of speech Affect: + depressed affect Mood: + depressed mood Thought Process: goal directed thought process Thought Content: reality based without delusions Suicidal Thoughts: denies suicidal intent (on unit); + reports suicidal thoughts and + reports suicidal plan (OD again, can't on unit) Homicidal Thoughts: denies homicidal thoughts Hallucinations: no auditory hallucinations and no visual hallucinations Cognition: language grossly intact; + attention not intact Estimated Intelligence: consistent with education level Insight: + limited insight Judgement: + limited judgement Vital Signs (Past 24 Hours) Last Vital Signs Temp 36.1 C L 06/30/22 06:00 Pulse 75 06/30/22 06:35 Resp 18 06/30/22 06:00 BP 138/97 06/30/22 06:35 Pulse Ox 99 06/30/22 06:00 O2 Del Method 06/30/22 06:00 Results & Data ([facility]) Laboratory Results Laboratory Results - last 24 hr 06/30/22 08:17 Fasting Glucose 93 Triglycerides 74 Cholesterol 259 H LDL Cholesterol, Calc 175 VLDL Cholesterol, Calc 15 HDL Cholesterol 69 Cholesterol/HDL Ratio 3.8 Current Inpatient Medications Current Inpatient Medications: Current Inpatient Medications Acetaminophen (Acetaminophen 325 Mg Tab) 650 mg PO Q4H PRN PRN Reason: Headache or Minor Fever Stop: 07/28/22 13:04 Al Hydrox/Mg Hydrox/Simethicone (Aluminum/Magnesium Susp 30 Ml Udc) 30 ml PO Q4H PRN PRN Reason: GI Upset Stop: 07/28/22 13:04 Bismuth Subsalicylate (Bismuth Subsalicylate Liqd 236 Ml) 15 ml PO PRN PRN PRN Reason: Loose Stool Stop: 07/28/22 13:04 Bupropion HCl (Bupropion Sr 100 Mg Tabcr) 200 mg PO DAILY DAYANNA Stop: 07/31/22 08:59 Buspirone HCl (Buspirone 5 Mg Tab) 10 mg PO BIDM DAYANNA Stop: 07/30/22 17:44 Cetirizine HCl (Cetirizine Hcl 10 Mg Tablet) 10 mg PO DAILY DAYANNA Stop: 07/29/22 08:59 Last Admin: 06/30/22 09:31 Dose: 10 mg Clonazepam (Clonazepam 0.5 Mg Tab) 0.5 mg PO BID PRN PRN Reason: Anxiety if Buspar ineffective Stop: 07/28/22 13:05 Cyclobenzaprine HCl (Cyclobenzaprine Hcl 5 Mg Tab) 5 mg PO HS DAYANNA Stop: 07/29/22 21:59 Last Admin: 06/29/22 20:45 Dose: 5 mg Diclofenac Sodium (Diclofenac Sodium 75 Mg Tabcr) 75 mg PO BID DAYANNA Stop: 07/28/22 20:59 Last Admin: 06/30/22 09:31 Dose: 75 mg Hydroxyzine HCl (Hydroxyzine Hcl 25 Mg Tab) 50 mg PO HSZ PRN PRN Reason: Insomnia Stop: 07/28/22 13:04 Last Admin: 06/29/22 20:45 Dose: 50 mg Lurasidone HCl (Lurasidone Hcl 40 Mg Tab) 40 mg PO DAILYBD DAYANNA Stop: 07/28/22 17:14 Last Admin: 06/29/22 17:31 Dose: 40 mg Magnesium Hydroxide (Magnesium Hydroxide Susp 30 Ml Udc) 30 ml PO DAILY PRN PRN Reason: Constipation Stop: 07/28/22 13:04 Metronidazole (Metronidazole 0.75% Topical Gel 45 Gm Tube) 1 appln TOP DAILY DAYANNA Stop: 07/10/22 09:14 Last Admin: 06/30/22 10:47 Dose: 1 appln Pantoprazole Sodium (Pantoprazole 40 Mg Tab) 40 mg PO DAILY DAYANNA Stop: 07/29/22 08:59 Last Admin: 06/30/22 09:32 Dose: 40 mg Sodium Chloride (Sodium Chloride 0.65% Na Soln 45 Ml ([place])) 1 - 2 sprays NA PRN PRN PRN Reason: Nasal Dryness/Congestion Stop: 07/28/22 13:04 Sumatriptan Succinate (Sumatriptan Succinate 25 Mg Tab) 25 mg PO DAILY PRN PRN Reason: Migraine Headache Stop: 07/28/22 14:36 Last Admin: 06/29/22 04:23 Dose: 25 mg Mental Health & Subst Abuse Tx Therapist Name of Therapist: None Harness Inspector Name of Harness Inspector: None Post Discharge Appointments Primary Care Physician Name Of Family Doctor: Rodney Pires
[2022-06-30] MEDS: LURASIDONE HCL 40 MG TAB PO SCH (18:04)
[2022-06-30] MEDS: busPIRone 5 MG TAB PO SCH (18:04)
[2022-06-30] MEDS: hydrOXYzine HCl 25 MG TAB PO PRN (20:35)
[2022-06-30] MEDS: CYCLOBENZAPRINE HCL 5 MG TAB PO SCH (20:35)
--- NOTE | 2022-07-01 08:49 | Psychiatric Progress Note ---
Date of Service July 01, 2022 Impression / Recommendations Impression 56 yo female with a previous suicidal gesture >10 years ago (3 prior inpatient mental health stays for depression around her divorce) presents following undisclosed trazodone OD within the past week in the context of argument with fiance. Remains ambivalent re: involvement of children/extended family in her care (some are employees). Records reviewed as being seen for some time at [facility] for dx of unspecified mood disorder and TRENA. 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 Past med trials listed as Prozac, Rexulti (side effects), Wellbutrin, Lamictal (never past 50 mg), Ziprasidone, Trintellix, Topamax. 07/01/22:reviewed interim progress per Dr. Reyes's notes. Continues to endorse depression and anxiety with significant insomnia. Notable difficulty at times with organizing her thoughts. She consents to transition from Wellbutrin SR to XL to increase efficacy during the day and option for ongoing dose titration if needed. Discussed medication treatment options in detail. Discussed risks, benefits and alternatives. Patient would like to start and consented to mirtazapine for depression augmentation and insomnia and Wellbutrin XL. Reviewed side effects including but not limited to: sedation, appetite changes; elevated HR, elevated BP, anxiety, insomnia, decreased appetite. (1) Depression with suicidal ideation: (2) Overdose: Plan 07/01/22:Switch to Wellbutrin XL 150mg qd, start mirtazapine 7.5mg qhs. 06/30/22: as main concerns are anxiety and low motivation with depression discussed trial of a higher dose of Wellbutrin (particularly given am vs. pm fluctuations in mood), and addition of standing Buspar. Likely switch to XL formulation of Wellbutrin soon though if evidence of jitteriness, patient has not exhausted SSRI trials. 06/29/22: Risks/benefits/alternatives were re-reviewed re: antipsychotics for mood and/or psychosis. Discussion included but was not limited to metabolic and longer term TD. There were no abnormal motor movements at baseline. Fasting glucose and lipid panel ordered for baseline monitoring. Continue higher dose of Latuda 40 mg daily. 06/28/22: The patient was admitted to the [facility] ([facility] unit) on q15 min checks (behavioral with suicide precautions) for safety. The patient will participate in group, recreational, and milieu therapies and will be offered additional individual and family sessions as clinically appropriate. Risks/benefits/alternatives reviewed re: continuing current medications save trazodone (given OD). Will provide Imitrex prn as she is likely between doses of her monthly injectable preventative. Inventory Assets Strengths: has been connected with community care, did reveal attempt Needs: improve coping skills, doesn't currently have outpatient therapist. 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 Chief Complaint "I just have no motivation to do anything". Review of Systems Sleep Information Total Hours of Sleep: 7 Sleep Comments: Awoke early with a migraine - given Imitrex and returned to sleep Meal Information Percent Meal Consumed - Breakfast: 5 Percent Meal Consumed - Lunch: 50 Percent Meal Consumed - Dinner: 100 Subjective Subjective Patient was seen & assessed and interval progress reviewed with treatment team nursing and social work. Carlo notes ongoing depression with lack of motivation, very low energy, difficulty organizing her thoughts and concerns about her ability to function outside of the hospital. Continues to have poor sleep review ed her long history of insomnia and use of multiple sleep aid medications both prescribed and OTC prior to admission. Reviewed reasons of need to avoid trazodone given overdose on this leading to admission. She would like to transition to Wellbutrin XL, does not feel higher SR dose has worsened anxiety nor insomnia. Reviewed option for CBT-I in outpatient setting or sleep study if sleep remains very problematic. Physical Exam Psychiatric Orientation: alert Apperance: appropriately groomed and + disheveled Eye Contact: + fair eye contact and + poor eye contact Motor Behavior: no abnormal motor movements Speech: normal rate/rhythm/volume of speech Affect: + depressed affect Mood: + depressed mood Thought Process: goal directed thought process Thought Content: reality based without delusions Suicidal Thoughts: denies suicidal plan and denies suicidal intent; + reports suicidal thoughts Homicidal Thoughts: denies homicidal thoughts Hallucinations: no auditory hallucinations and no visual hallucinations Cognition: language grossly intact; + attention not intact Estimated Intelligence: consistent with education level Insight: + limited insight Judgement: + limited judgement Vital Signs (Past 24 Hours) Last Vital Signs Temp 36.5 C 07/01/22 06:00 Pulse 77 07/01/22 06:32 Resp 18 07/01/22 06:00 BP 140/86 07/01/22 06:32 Pulse Ox 99 06/30/22 06:00 O2 Del Method 06/30/22 06:00 Results & Data ([facility]) Laboratory Results Laboratory Results - last 24 hr 06/30/22 08:17 Fasting Glucose 93 Triglycerides 74 Cholesterol 259 H LDL Cholesterol, Calc 175 VLDL Cholesterol, Calc 15 HDL Cholesterol 69 Cholesterol/HDL Ratio 3.8 Current Inpatient Medications Current Inpatient Medications: Current Inpatient Medications Acetaminophen (Acetaminophen 325 Mg Tab) 650 mg PO Q4H PRN PRN Reason: Headache or Minor Fever Stop: 07/28/22 13:04 Al Hydrox/Mg Hydrox/Simethicone (Aluminum/Magnesium Susp 30 Ml Udc) 30 ml PO Q4H PRN PRN Reason: GI Upset Stop: 07/28/22 13:04 Bismuth Subsalicylate (Bismuth Subsalicylate Liqd 236 Ml) 15 ml PO PRN PRN PRN Reason: Loose Stool Stop: 07/28/22 13:04 Bupropion HCl (Bupropion Sr 100 Mg Tabcr) 200 mg PO DAILY [facility] Stop: 07/31/22 08:59 Buspirone HCl (Buspirone 5 Mg Tab) 10 mg PO BIDM [facility] Stop: 07/30/22 17:44 Last Admin: 06/30/22 18:04 Dose: 10 mg Buspirone HCl (Buspirone 5 Mg Tab) 10 mg PO DAILY PRN PRN Reason: Anxiety Stop: 07/31/22 08:59 Cetirizine HCl (Cetirizine Hcl 10 Mg Tablet) 10 mg PO DAILY [facility] Stop: 07/29/22 08:59 Last Admin: 06/30/22 09:31 Dose: 10 mg Clonazepam (Clonazepam 0.5 Mg Tab) 0.5 mg PO BID PRN PRN Reason: Anxiety if Buspar ineffective Stop: 07/28/22 13:05 Cyclobenzaprine HCl (Cyclobenzaprine Hcl 5 Mg Tab) 5 mg PO HS DAY[facility] Stop: 07/29/22 21:59 Last Admin: 06/30/22 20:35 Dose: 5 mg Diclofenac Sodium (Diclofenac Sodium 75 Mg Tabcr) 75 mg PO BID [facility] Stop: 07/28/22 20:59 Last Admin: 06/30/22 20:35 Dose: 75 mg Hydroxyzine HCl (Hydroxyzine Hcl 25 Mg Tab) 50 mg PO HSZ PRN PRN Reason: Insomnia Stop: 07/28/22 13:04 Last Admin: 06/30/22 20:35 Dose: 50 mg Lurasidone HCl (Lurasidone Hcl 40 Mg Tab) 40 mg PO DAILYBD [facility] Stop: 07/28/22 17:14 Last Admin: 06/30/22 18:04 Dose: 40 mg Magnesium Hydroxide (Magnesium Hydroxide Susp 30 Ml Udc) 30 ml PO DAILY PRN PRN Reason: Constipation Stop: 07/28/22 13:04 Metronidazole (Metronidazole 0.75% Topical Gel 45 Gm Tube) 1 appln TOP DAILY [facility] Stop: 07/10/22 09:14 Last Admin: 06/30/22 10:47 Dose: 1 appln Pantoprazole Sodium (Pantoprazole 40 Mg Tab) 40 mg PO DAILY [facility] Stop: 07/29/22 08:59 Last Admin: 06/30/22 09:32 Dose: 40 mg Sodium Chloride (Sodium Chloride 0.65% Na Soln 45 Ml ([place])) 1 - 2 sprays NA PRN PRN PRN Reason: Nasal Dryness/Congestion Stop: 07/28/22 13:04 Sumatriptan Succinate (Sumatriptan Succinate 25 Mg Tab) 25 mg PO DAILY PRN PRN Reason: Migraine Headache Stop: 07/28/22 14:36 Last Admin: 06/29/22 04:23 Dose: 25 mg Mental Health & Subst Abuse Tx Psychiatrist Name of Psychiatrist: Asif Asencio Psychiatrist's Date of Appointment with Psychiatrist: 08/02/22 Time of Appointment with Psychiatrist: 10:40 AM Psychiatric Appointment Comment: [address], [place] [address] Therapist Name of Therapist: None Behavioral Health Care Coordinator Name of Behavioral Health Care Coordinator: None Post Discharge Appointments Primary Care Physician Name Of Family Doctor: Mayito Pires Primary Care Provider Appointment Comment: Please follow-up with PCP as needed. Contact Information Discharge Discharge Address: [address], [place] [address]
[2022-07-01] MEDS: busPIRone 5 MG TAB PO SCH ×2 (08:57→17:38)
[2022-07-01] MEDS: CETIRIZINE HCL 10 MG TABLET PO SCH (08:57)
[2022-07-01] MEDS: DICLOFENAC SODIUM 75 MG TABCR PO SCH ×2 (08:57→20:41)
[2022-07-01] MEDS: metroNIDAZOLE 0.75% TOPICAL GEL 45 GM TUBE TOP SCH (08:58)
[2022-07-01] MEDS: PANTOprazole 40 MG TAB PO SCH (08:58)
[2022-07-01] MEDS ORDERED: buPROPion SR 100 MG TABCR PO SCH (09:00)
[2022-07-01] MEDS: LURASIDONE HCL 40 MG TAB PO SCH (17:38)
[2022-07-01] MEDS: CYCLOBENZAPRINE HCL 5 MG TAB PO SCH (20:41)
[2022-07-01] MEDS: hydrOXYzine HCl 25 MG TAB PO PRN (20:42)
[2022-07-01] MEDS ORDERED: MIRTAZAPINE TAB 15 MG TAB PO SCH (22:00)
--- NOTE | 2022-07-02 08:59 | Psychiatric Progress Note ---
Date of Service July 02, 2022 Impression / Recommendations Impression 56 yo female with a previous suicidal gesture >10 years ago (3 prior inpatient mental health stays for depression around her divorce) presents following undisclosed trazodone OD within the past week in the context of argument with fiance. Remains ambivalent re: involvement of children/extended family in her care (some are employees). Records reviewed as being seen for some time at [facility] for dx of unspecified mood disorder and TRENA. 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 Past med trials listed as Prozac, Rexulti (side effects), Wellbutrin, Lamictal (never past 50 mg), Ziprasidone, Trintellix, Topamax. 07/02/22:mood improving steadily and no SI today. Still with low energy and some irritability she attributes to depression. Consents to further titration of Wellbutrin and mirtazapine. Reviewed resources including book Smart but Scattered that can be helpful for dealing with some symptoms of adult ADHD she finds difficult at times. (1) Depression with suicidal ideation: (2) Overdose: Plan 07/02/22: Increase to Wellbutrin XL 300mg qd, increase mirtazapine 15mg qhs 07/01/22:Switch to Wellbutrin XL 150mg qd, start mirtazapine 7.5mg qhs. 06/30/22: as main concerns are anxiety and low motivation with depression discussed trial of a higher dose of Wellbutrin (particularly given am vs. pm fluctuations in mood), and addition of standing Buspar. Likely switch to XL formulation of Wellbutrin soon though if evidence of jitteriness, patient has not exhausted SSRI trials. 06/29/22: Risks/benefits/alternatives were re-reviewed re: antipsychotics for mood and/or psychosis. Discussion included but was not limited to metabolic and longer term TD. There were no abnormal motor movements at baseline. Fasting glucose and lipid panel ordered for baseline monitoring. Continue higher dose of Latuda 40 mg daily. 06/28/22: The patient was admitted to the [facility] ([facility] inpatient mental health unit) on q15 min checks (behavioral with suicide precautions) for safety. The patient will participate in group, recreational, and milieu therapies and will be offered additional individual and family sessions as clinically appropriate. Risks/benefits/alternatives reviewed re: continuing current medications save trazodone (given OD). Will provide Imitrex prn as she is likely between doses of her monthly injectable preventative. Inventory Assets Strengths: has been connected with community care, did reveal attempt Needs: improve coping skills, doesn't currently have outpatient therapist. 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 Chief Complaint "I'm good but noises are still jarring to me". Review of Systems Sleep Information Total Hours of Sleep: 7.5 Sleep Comments: Meal Information Percent Meal Consumed - Breakfast: 100 Percent Meal Consumed - Lunch: 100 Percent Meal Consumed - Dinner: 100 Subjective Subjective Patient was seen & assessed and interval progress reviewed with treatment team nursing and social work. Attending groups but less interactive with peers, listens attentively though. Went to bed early and expressed more hopefulness last night. Slept for 7.5 hours. Feels the mirtazapine helped with sleep but still had some awakenings and continues to feel tired. Denies SI. Still sensitive to noises like a peer's laugh but using ear plugs at times and notes this has been a chronic challenge since childhood. She notes she has experienced increased irritability with her depression but feels this is lessening. Physical Exam Psychiatric Orientation: alert and oriented x 3 Apperance: appropriately dressed and appropriately groomed Eye Contact: good eye contact Motor Behavior: no abnormal motor movements Speech: normal rate/rhythm/volume of speech Affect: euthymic affect Mood: + depressed mood Thought Process: goal directed thought process Thought Content: reality based without delusions Suicidal Thoughts: denies suicidal thoughts, denies suicidal plan and denies suicidal intent Homicidal Thoughts: denies homicidal thoughts Hallucinations: no auditory hallucinations and no visual hallucinations Cognition: recent memory grossly intact, remote memory grossly intact and language grossly intact; + attention not intact Estimated Intelligence: consistent with education level Insight: + limited insight Judgement: + fair judgement Vital Signs (Past 24 Hours) Last Vital Signs Temp 36.6 C 07/02/22 06:37 Pulse 62 07/02/22 06:37 Resp 18 07/02/22 06:37 BP 153/89 H 07/02/22 06:37 Pulse Ox 99 06/30/22 06:00 O2 Del Method 06/30/22 06:00 Results & Data ([facility]) Current Inpatient Medications Current Inpatient Medications: Current Inpatient Medications Acetaminophen (Acetaminophen 325 Mg Tab) 650 mg PO Q4H PRN PRN Reason: Headache or Minor Fever Stop: 07/28/22 13:04 Last Admin: 07/02/22 08:14 Dose: 650 mg Al Hydrox/Mg Hydrox/Simethicone (Aluminum/Magnesium Susp 30 Ml Udc) 30 ml PO Q4H PRN PRN Reason: GI Upset Stop: 07/28/22 13:04 Bismuth Subsalicylate (Bismuth Subsalicylate Liqd 236 Ml) 15 ml PO PRN PRN PRN Reason: Loose Stool Stop: 07/28/22 13:04 Bupropion HCl (Bupropion Xl 150 Mg Tabcr) 150 mg PO QAM [facility] Stop: 08/01/22 08:59 Buspirone HCl (Buspirone 5 Mg Tab) 10 mg PO BIDM [facility] Stop: 07/30/22 17:44 Last Admin: 07/01/22 17:38 Dose: 10 mg Buspirone HCl (Buspirone 5 Mg Tab) 10 mg PO DAILY PRN PRN Reason: Anxiety Stop: 07/31/22 08:59 Cetirizine HCl (Cetirizine Hcl 10 Mg Tablet) 10 mg PO DAILY [facility] Stop: 07/29/22 08:59 Last Admin: 07/01/22 08:57 Dose: 10 mg Clonazepam (Clonazepam 0.5 Mg Tab) 0.5 mg PO BID PRN PRN Reason: Anxiety if Buspar ineffective Stop: 07/28/22 13:05 Cyclobenzaprine HCl (Cyclobenzaprine Hcl 5 Mg Tab) 5 mg PO HS [facility]ANNA Stop: 07/29/22 21:59 Last Admin: 07/01/22 20:41 Dose: 5 mg Diclofenac Sodium (Diclofenac Sodium 75 Mg Tabcr) 75 mg PO BID [facility]AN[facility] Stop: 07/28/22 20:59 Last Admin: 07/01/22 20:41 Dose: 75 mg Hydroxyzine HCl (Hydroxyzine Hcl 25 Mg Tab) 50 mg PO HSZ PRN PRN Reason: Insomnia Stop: 07/28/22 13:04 Last Admin: 07/01/22 20:42 Dose: 50 mg Lurasidone HCl (Lurasidone Hcl 40 Mg Tab) 40 mg PO DAILYBD [facility] Stop: 07/28/22 17:14 Last Admin: 07/01/22 17:38 Dose: 40 mg Magnesium Hydroxide (Magnesium Hydroxide Susp 30 Ml Udc) 30 ml PO DAILY PRN PRN Reason: Constipation Stop: 07/28/22 13:04 Metronidazole (Metronidazole 0.75% Topical Gel 45 Gm Tube) 1 appln TOP DAILY [facility] Stop: 07/10/22 09:14 Last Admin: 07/01/22 08:58 Dose: 1 appln Mirtazapine (Mirtazapine Tab 15 Mg Tab) 7.5 mg PO HS [facility] Stop: 07/31/22 21:59 Last Admin: 07/01/22 20:41 Dose: 7.5 mg Pantoprazole Sodium (Pantoprazole 40 Mg Tab) 40 mg PO DAILY [facility] Stop: 07/29/22 08:59 Last Admin: 07/01/22 08:58 Dose: 40 mg Sodium Chloride (Sodium Chloride 0.65% Na Soln 45 Ml ([place])) 1 - 2 sprays NA PRN PRN PRN Reason: Nasal Dryness/Congestion Stop: 07/28/22 13:04 Sumatriptan Succinate (Sumatriptan Succinate 25 Mg Tab) 25 mg PO DAILY PRN PRN Reason: Migraine Headache Stop: 07/28/22 14:36 Last Admin: 06/29/22 04:23 Dose: 25 mg Mental Health & Subst Abuse Tx Psychiatrist Name of Psychiatrist: Asif Asencio Psychiatrist's Date of Appointment with Psychiatrist: 08/02/22 Time of Appointment with Psychiatrist: 10:40 AM Psychiatric Appointment Comment: [address], [place] [address] Therapist Name of Therapist: None [place] Name of [place]: None Post Discharge Appointments Primary Care Physician Name Of Family Doctor: Mayito Pires Primary Care Provider Appointment Comment: Please follow-up with PCP as needed. Contact Information Discharge Discharge Address: [address], [place] [address]
[2022-07-02] MEDS ORDERED: buPROPion XL 150 MG TABCR PO SCH (09:00)
[2022-07-02] MEDS: metroNIDAZOLE 0.75% TOPICAL GEL 45 GM TUBE TOP SCH (09:11)
[2022-07-02] MEDS: CETIRIZINE HCL 10 MG TABLET PO SCH (09:12)
[2022-07-02] MEDS: PANTOprazole 40 MG TAB PO SCH (09:12)
[2022-07-02] MEDS: DICLOFENAC SODIUM 75 MG TABCR PO SCH ×2 (09:12→21:44)
[2022-07-02] MEDS: busPIRone 5 MG TAB PO SCH ×2 (09:13→18:09)
[2022-07-02 13:51] LABS: MDA negative; MDEA negative; MDMA (Ecstasy) Urine, Confirm negative
[2022-07-02] MEDS: LURASIDONE HCL 40 MG TAB PO SCH (18:09)
[2022-07-02] MEDS: CYCLOBENZAPRINE HCL 5 MG TAB PO SCH (21:45)
[2022-07-02] MEDS ORDERED: MIRTAZAPINE TAB 15 MG TAB PO SCH (22:00)
--- NOTE | 2022-07-03 08:53 | Discharge Summary ---
Date of Service July 03, 2022 History of Present Illness Patient is in a dark room, states at home she occasionally uses an injection or Imitrex for her migraine SN[place]. Currently stressed after time in ED and having related her attempt to outpatient provider at [facility] and then seeking medical attention. She has indicated that she is upset the attempt didn't work and her provider initiated a petitioning statement had she been unwilling to sign in for treatment, particularly given past attempt. She confirmed her recent history as outlined in ED CM note and clarified that she does take Latuda only for the past few days and with her evening meal. She has not taken it yet today and had she been able to complete her appointment the plan was to increase the dose to 40 mg to target her depression. As per ED CM: Pt reports that last Sunday night, following a fight with her fisantos, she took a bunch of pills in an attempt to end her life. She reports that it was impulsive and denies planning the event prior to taking the pills. She admits to severe depression/anxiety. She states that the fight with her fisantos was about her depression and his difficulty understanding it. She reports that she vomited most of the day Sat but did not seek treatment. Today she went to see her psychiatric provider, Tori Asencio. Pt denied current SI with plan and intent but stated that she wished she would have Sunday when she took the overdose. Tori recommended that she come to the ED. Tori did complete a 302 petition. Pt has no therapist. She lives with her fisantos. 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 She states that they are the only reason she is alive. Pt is very tearful. She denies drug use and reports drinking alcohol on Sunday nights when she and her fianc go out. She does not smoke cigarettes. She has a hx of one SA 14 years ago by overdose. She was a pt at [facility]/ Unit. She states that she was going through an ugly divorce and that is when her depression started. She reports that she lost 50 lbs during Covid and has gained all of that weight back, which she is very unhappy about. She states that she binge eats and then feels terrible about herself. She denies purging. Her sleep is not good, she reports 3-4 hours of interrupted sleep. She reports extreme anxiety. She does not like to leave her house and has difficulty being around people. She denies hallucinations, delusions and paranoia. Pt is willing for inpatient treatment. Physical Exam Vital Signs (Past 24 Hours) Last Vital Signs Temp 36.9 C 07/03/22 06:40 Pulse 67 07/03/22 06:41 Resp 18 07/03/22 06:40 BP 130/91 07/03/22 06:41 Pulse Ox 99 06/30/22 06:00 O2 Del Method 06/30/22 06:00 See admission H&P and DOD summary. Principal Diagnosis Major depressive disorder with anxiety Psychiatric Data See daily stay summary. In short, patient was engaged with the social/therapeutic milieu of the unit, safety was maintained and the patient was cooperative with care. Medication changes included increase in Latuda to 40mg daily, Wellbutrin XL 300mg daily for depression and ADHD, Buspar 10mg BID for anxiety, and mirtazapine 15mg qhs for insomnia and they tolerated this well. Baseline labs of fasting glucose, fasting lipid profile, and weight were preformed and all within normal limits with exception of elevated total cholesterol. Recommend repeat cholesterol in one month and follow-up with her primary care provider if this remains elevated. Recommend repeat fasting glucose, and fasting lipid profile every 12 weeks and then annually. If symptoms arise recommend checking BP, EKG, prolactin level as clinically indicated or relevant. A family session was held and safety plan was completed prior to discharge. She actively and insightfully participated in safety planning and in discussions about ways to seek support and recognizing warning signs and utilizing coping skills. Reviewed mobile apps that could be used for additional ways to have their safety plan and contacts easily available should thoughts of SI re-emerge in the future. Reviewed importance of seeking emergency care should SI intensify, worsen or should they feel unsafe in the future which they agree to do. On the day of discharge she stated her mood was "really good" and remained future-oriented including being back at home with her shower and bed, going to the bookstore, spending time with her fiance and seeing her grandkids on and engaging in aftercare appointments for psychiatry. She declined a referral for outpatient therapy but we discussed option to use psychology today in the future should she become interested in therapy or should her mood not improve enough with medication alone. Day of Discharge Assessment Today the patient voices readiness for discharge. They note improvement in mood and anxiety. They deny thoughts of harm to self or others. Thoughts are organized and they are clinically improved from admission. There is no evidence of psychosis. They improved in the hospital with support and medication adjustments. They agree to take medications as prescribed and keep follow-up appointments. At the time of the discharge they are deemed to be stable and ap propriate for outpatient level of care. They are not deemed to be at imminent risk of harm to self or others. They are aware of emergency and crisis services. Knows to call 911 or go to nearest emergency care center if in a crisis which cannot be handled as an outpatient. Transition of Care Transition Of Care Record: was reviewed with the patient Advance Directives Advance Directives Information Provided: Yes Advance Directives: No Mental Health Advance Directive: No Advance Directives on File: No Living Will: No Power of Orchestrator: No Advance Directives Reason:: Declines as Mental Health Visit. Suicide Risk Level Suicide Risk Level Comments: Acute risk is low given improvement in mood and denial of SI, lack of access to lethal means, improvement in sleep slightly, hopefulness. Chronic risk is moderate given psychiatric co-morbid diagnoses, periods of impulsivity, prior attempt, prior psychiatric hospitalizations, mood disorder but also with protective factors including her family and friends. Counseled on ways to reduce acute and chronic risk including engaging with outpatient providers, using safety plan if needed, utilizing supports, taking medication, and using coping skills. Modifiable risk factors of SI and depression were addressed during hospitalization through development of new coping skills, family meeting, safety planning, and medication adjustments. 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) Stable Relationships: Yes Discharge Data Lab Results 06/28/22 06/28/22 06/28/22 10:20 10:20 10:20 WBC 3.75 L RBC 4.14 Hgb 13.3 Hct 39.8 MCV 96.1 MCH 32.1 MCHC 33.4 RDW Std Deviation 43.5 RDW Coeff of Kathrine 12.2 Plt Count 175 MPV 10.8 Immature Gran % (Auto) 0.3 Neut % (Auto) 57.8 Lymph % (Auto) 33.3 [place] % (Auto) 5.9 Eos % (Auto) 1.9 Baso % (Auto) 0.8 Neut # (Auto) 2.17 Lymph # (Auto) 1.25 [place] # (Auto) 0.22 L Eos # (Auto) 0.07 Baso # (Auto) 0.03 Immature Gran # (Auto) 0.01 Sodium 140 Potassium 3.9 Chloride 106 Carbon Dioxide 29 Anion Gap 5 BUN 15 Creatinine 0.85 Est Cr Clr Drug Dosing 76.8 Est GFR ( Amer) 88.2 Est GFR (Non-Af Amer) 76.1 BUN/Creatinine Ratio 17.6 Glucose 94 Fasting Glucose Calcium 9.1 Total Bilirubin 0.7 AST 17 ALT 15 Alkaline Phosphatase 34 Total Protein 6.5 Albumin 4.3 Globulin 2.2 L Albumin/Globulin Ratio 2.0 Triglycerides Cholesterol LDL Cholesterol, Calc VLDL Cholesterol, Calc HDL Cholesterol Cholesterol/HDL Ratio TSH 1.693 Urine Color Urine Appearance Urine pH Ur Specific [place] Urine Protein Urine Glucose (UA) Urine Ketones Urine Blood Urine Nitrite Urine Bilirubin Urine Urobilinogen Ur Leukocyte Esterase Urine WBC (Auto) Urine RBC (Auto) U Hyaline Cast (Auto) U Epithel Cells (Auto) Urine Bacteria (Auto) Salicylates Urine Opiates Screen Ur Methadone, Qual Acetaminophen Urine Barbiturates Ur Phencyclidine (PCP) U Amphetamin/Meth Scrn Urine MDEA MDMA (Ecstasy) Screen MDMA Urine MDMA U Benzodiazepines Scrn Ur Cocaine Metabolite U Marijuana (THC) Screen Ethyl Alcohol mg/dL SARS-CoV-2, RNA, NAAT 06/28/22 06/28/22 06/28/22 10:20 10:20 Unknown WBC RBC Hgb Hct MCV MCH MCHC RDW Std Deviation RDW Coeff of Kathrine Plt Count MPV Immature Gran % (Auto) Neut % (Auto) Lymph % (Auto) [place] % (Auto) Eos % (Auto) Baso % (Auto) Neut # (Auto) Lymph # (Auto) [place] # (Auto) Eos # (Auto) Baso # (Auto) Immature Gran # (Auto) Sodium Potassium Chloride Carbon Dioxide Anion Gap BUN Creatinine Est Cr Clr Drug Dosing Est GFR ( Amer) Est GFR (Non-Af Amer) BUN/Creatinine Ratio Glucose Fasting Glucose Calcium Total Bilirubin AST ALT Alkaline Phosphatase Total Protein Albumin Globulin Albumin/Globulin Ratio Triglycerides Cholesterol LDL Cholesterol, Calc VLDL Cholesterol, Calc HDL Cholesterol Cholesterol/HDL Ratio TSH Urine Color Yellow Urine Appearance Clear Urine pH 5.0 Ur Specific [place] 1.019 Urine Protein Negative Urine Glucose (UA) Negative Urine Ketones Negative Urine Blood Negative Urine Nitrite Negative Urine Bilirubin Negative Urine Urobilinogen Negative Ur Leukocyte Esterase 1+ H Urine WBC (Auto) 1-5 Urine RBC (Auto) 0-4 U Hyaline Cast (Auto) 1-5 U Epithel Cells (Auto) >30 H Urine Bacteria (Auto) Negative Salicylates < 3.0 L Urine Opiates Screen Ur Methadone, Qual Acetaminophen < 3 L Urine Barbiturates Ur Phencyclidine (PCP) U Amphetamin/Meth Scrn Urine MDEA MDMA (Ecstasy) Screen MDMA Urine MDMA U Benzodiazepines Scrn Ur Cocaine Metabolite U Marijuana (THC) Screen Ethyl Alcohol mg/dL < 10.0 SARS-CoV-2, RNA, NAAT 06/28/22 06/28/22 06/28/22 Unknown Unknown Unknown WBC RBC Hgb Hct MCV MCH MCHC RDW Std Deviation RDW Coeff of Kathrine Plt Count MPV Immature Gran % (Auto) Neut % (Auto) Lymph % (Auto) [place] % (Auto) Eos % (Auto) Baso % (Auto) Neut # (Auto) Lymph # (Auto) [place] # (Auto) Eos # (Auto) Baso # (Auto) Immature Gran # (Auto) Sodium Potassium Chloride Carbon Dioxide Anion Gap BUN Creatinine Est Cr Clr Drug Dosing Est GFR ( Amer) Est GFR (Non-Af Amer) BUN/Creatinine Ratio Glucose Fasting Glucose Calcium Total Bilirubin AST ALT Alkaline Phosphatase Total Protein Albumin Globulin Albumin/Globulin Ratio Triglycerides Cholesterol LDL Cholesterol, Calc VLDL Cholesterol, Calc HDL Cholesterol Cholesterol/HDL Ratio TSH Urine Color Urine Appearance Urine pH Ur Specific [place] Urine Protein Urine Glucose (UA) Urine Ketones Urine Blood Urine Nitrite Urine Bilirubin Urine Urobilinogen Ur Leukocyte Esterase Urine WBC (Auto) Urine RBC (Auto) U Hyaline Cast (Auto) U Epithel Cells (Auto) Urine Bacteria (Auto) Salicylates Urine Opiates Screen Neg Ur Methadone, Qual Neg Acetaminophen Urine Barbiturates Neg Ur Phencyclidine (PCP) Neg U Amphetamin/Meth Scrn Neg Urine MDEA negative MDMA (Ecstasy) Screen Pos H MDMA negative Urine MDMA negative U Benzodiazepines Scrn Neg Ur Cocaine Metabolite Neg U Marijuana (THC) Screen Neg Ethyl Alcohol mg/dL SARS-CoV-2, RNA, NAAT NEGATIVE 06/30/22 08:17 WBC RBC Hgb Hct MCV MCH MCHC RDW Std Deviation RDW Coeff of Kathrine Plt Count MPV Immature Gran % (Auto) Neut % (Auto) Lymph % (Auto) [place] % (Auto) Eos % (Auto) Baso % (Auto) Neut # (Auto) Lymph # (Auto) [place] # (Auto) Eos # (Auto) Baso # (Auto) Immature Gran # (Auto) Sodium Potassium Chloride Carbon Dioxide Anion Gap BUN Creatinine Est Cr Clr Drug Dosing Est GFR ( Amer) Est GFR (Non-Af Amer) BUN/Creatinine Ratio Glucose Fasting Glucose 93 Calcium Total Bilirubin AST ALT Alkaline Phosphatase Total Protein Albumin Globulin Albumin/Globulin Ratio Triglycerides 74 Cholesterol 259 H LDL Cholesterol, Calc 175 VLDL Cholesterol, Calc 15 HDL Cholesterol 69 Cholesterol/HDL Ratio 3.8 TSH Urine Color Urine Appearance Urine pH Ur Specific [place] Urine Protein Urine Glucose (UA) Urine Ketones Urine Blood Urine Nitrite Urine Bilirubin Urine Urobilinogen Ur Leukocyte Esterase Urine WBC (Auto) Urine RBC (Auto) U Hyaline Cast (Auto) U Epithel Cells (Auto) Urine Bacteria (Auto) Salicylates Urine Opiates Screen Ur Methadone, Qual Acetaminophen Urine Barbiturates Ur Phencyclidine (PCP) U Amphetamin/Meth Scrn Urine MDEA MDMA (Ecstasy) Screen MDMA Urine MDMA U Benzodiazepines Scrn Ur Cocaine Metabolite U Marijuana (THC) Screen Ethyl Alcohol mg/dL SARS-CoV-2, RNA, NAAT Hospital Course (1) Depression with suicidal ideation: (2) Overdose: (3) Major depressive disorder with current active episode: Plan 07/02/22: Increase to Wellbutrin XL 300mg qd, increase mirtazapine 15mg qhs 07/01/22:Switch to Wellbutrin XL 150mg qd, start mirtazapine 7.5mg qhs. 06/30/22: as main concerns are anxiety and low motivation with depression discussed trial of a higher dose of Wellbutrin (particularly given am vs. pm fluctuations in mood), and addition of standing Buspar. Likely switch to XL formulation of Wellbutrin soon though if evidence of jitteriness, patient has not exhausted SSRI trials. 06/29/22: Risks/benefits/alternatives were re-reviewed re: antipsychotics for mood and/or psychosis. Discussion included but was not limited to metabolic and longer term TD. There were no abnormal motor movements at baseline. Fasting glucose and lipid panel ordered for baseline monitoring. Continue higher dose of Latuda 40 mg daily. 06/28/22: The patient was admitted to the [facility] ([facility] mental health unit) on q15 min checks (behavioral with suicide precautions) for safety. The patient will participate in group, recreational, and milieu therapies and will be offered additional individual and family sessions as clinically appropriate. Risks/benefits/alternatives reviewed re: continuing current medications save trazodone (given OD). Will provide Imitrex prn as she is likely between doses of her monthly injectable preventative. Mental Health & Subst Abuse Tx Psychiatrist Name of Psychiatrist: Asif Asencio Psychiatrist's Date of Appointment with Psychiatrist: 08/02/22 Time of Appointment with Psychiatrist: 10:40 AM Psychiatric Appointment Comment: [address], [place] [address] Therapist Name of Therapist: None Umbrella Supervisor Name of Umbrella Supervisor: None Post Discharge Appointments Primary Care Physician Name Of Family Doctor: Mayito Pires Primary Care Provider Appointment Comment: Please follow-up with PCP as needed. Contact Information Discharge Discharge [address]: [address] [place] [address] [place], [place] [address] Discharge Plan Discharge Items Patient Disposition: Home - Self-Care Reason For Visit: DEPRESSIVE DISORDER Discharge Diagnosis: Major Depressive Disorder with anxiety Activity: Resume your previous activity Non-emergency contact: Primary Care Provider and Psychiatrist Call non-emergency contact if: you have any medication questions and your symptoms worsen Follow-up/Referrals: Rodney Pires, [Primary Care Provider] - Diet: Regular Addtl Attending Provider Instructions: Optional mobile apps: -Suicide safety plan -Virtual Hope Box -Panic communication equipment mechanic SPECIAL CARE INSTRUCTIONS: 1. Follow through with your scheduled aftercare appointments. If unable to keep an appointment, please call to reschedule. 2. Take your medication only as prescribed. Medication should not be changed or stopped without the approval of your doctor. In the event of worsening symptoms or concerns about side effects, contact your doctor immediately. 3. Utilize new healthy coping skills, anger management skills, and stress management skills learned during your hospitalization. Journal feelings and process them with a support person. Identify stressors or situations that may result in relapse, deterioration or inappropriate behaviors and develop a plan to deal with those issues. 4. If your coping skills are ineffective and you are in crisis, contact your outpatient providers for direction. If unable to reach your providers, please call the [facility] CRISIS LINE AT , go to the [facility] walk-in center at [address], [place], or go to the closest Emergency Room. 5. Avoid alcohol and un-prescribed drugs. 6. You have been provided with the Mental Health Advance Directives Pamphlet for your review. 7. Your condition is stable for discharge to outpatient level of care, but recovery is an ongoing process. Ifthoughts to harm yourself or others return, follow the safety plan developed during your stay. Planning for a safe return home includes securing weapons. Our treatment team recommends weaponsbe removed from the home until your outpatient provider reassesses your progress. In rare cases where the items themselvescannot be removed, guns and ammunitionshould be secured separatelyand keys stored by a reliable personoutside of the home. If you were admitted on an involuntary commitment, the police or other legal authorities may be involved in this process. AFTERCARE APPOINTMENTS: * Please call your insurance company prior to your scheduled appointment to confirm your aftercare providers are covered. Take your insurance information to your appointments. WHO TO CALL AND WHEN: Medical Emergencies: For questions or emergencies related to your hospital stay, please contact the Inpatient Behavioral Health Unit at [phone]. A computer science intern is on-call 12/03 for the Behavioral Health Unit for emergencies At any time you feel your situation is an emergency, you may also call 911 immediately. Pending Studies at Discharge: No Stand-Alone Forms: My [facility] Medications and DC Order Prescriptions: New bupropion HCl 300 mg Tablet Extended Release 24 Hr 300 mg PO QAM 30 Days Qty: 30 0RF Latuda 40 mg Tablet 40 mg PO DAILYBD 30 Days Qty: 30 0RF mirtazapine 15 mg Tablet 15 mg PO HS 30 Days Qty: 30 0RF hydroxyzine HCl 50 mg tablet 50 mg PO HS PRN (Reason: anxiety/insomnia) 30 Days Qty: 30 0RF buspirone 10 mg tablet 10 mg PO BID 30 Days Qty: 60 0RF Continued pantoprazole 40 mg tablet,delayed release (DR/EC) 40 mg PO DAILY All Day Allergy (cetirizine) 10 mg Capsule 10 mg PO DAILY PRN (Reason: Allergy Symptoms) cyclobenzaprine 5 mg tablet 5 mg DAILY clonazepam [Klonopin] 0.5 mg Tablet 0.5 mg PO BID PRN (Reason: Anxiety) ibuprofen [IBU] 600 mg Tablet 600 mg PO BID diclofenac sodium 75 mg tablet,delayed release (DR/EC) 75 mg PO BID montelukast 10 mg Tablet 10 mg PO DAILY Ajovy Syringe 225 mg/1.5 mL Syringe 225 mg SUBCUT MONTHLY Discontinued trazodone 50 mg Tablet 100 - 150 mg PO HS PRN (Reason: Insomnia) Qty: 0 bupropion HCl [Wellbutrin SR] 150 mg Tablet Sustained-Release 12 Hr 150 mg PO DAILY Latuda 20 mg Tablet 20 mg PO DAILY Discharge Orders: Discharge Order (Routine); Ordered 07/03/22 Ordered By: Adelina Paulson Admission Data Admit Date/Time: 06/28/22 13:05 Attending Provider: Adelina Paulson Admit Provider: Britney Reyes Primary Care Provider: Rodney Pires Other Interventions: Discharge Summary Assessment (RN) Last Done: 07/03/22 10:14 PSY Interdisciplinary Discharge Planning Last Done: 07/03/22 10:15 Coding Level of Care Code 03730 D/C day mgmt > 30 min Diagnoses Depression with suicidal ideation F32.A; R45.851 Overdose T50.901A Major depressive disorder with current active episode F32.9 Time Spent (min) 35
[2022-07-03] MEDS ORDERED: buPROPion XL 300 MG TABCR PO SCH (09:00)
[2022-07-03] MEDS: busPIRone 5 MG TAB PO SCH (09:14)
[2022-07-03] MEDS: PANTOprazole 40 MG TAB PO SCH (09:15)
[2022-07-03] MEDS: DICLOFENAC SODIUM 75 MG TABCR PO SCH (09:15)
[2022-07-03] MEDS: CETIRIZINE HCL 10 MG TABLET PO SCH (09:15)
[2022-07-03] MEDS: metroNIDAZOLE 0.75% TOPICAL GEL 45 GM TUBE TOP SCH (09:18)
--- NOTE | 2022-07-03 16:30 | Communication Note ---
Date of Service: July 03, 2022 Received notice from Martha that lurasidone 40mg daily with dinner requires prior authorization when she attempted to get this from the pharmacy, she will contact [facility] as they previously provided her with samples and understands we'll submit prior authorization request. Completed prior authorization with documentation of stabilization in inpatient setting on lurasidone and two prior failed trials of alternatives (Rexulti and Ziprasidone per [facility] outpatient note from 06/28/2022) and prior auth faxed to [facility] [place].
== END 2022-07-03 10:25 | disposition home or self-care (01) | DRG 885 ==
LOC: ED 09:30 → SUATTDRO 13:05 → 3S 13:05